=== PATIENT | female | born 1990 | race Caucasian/White ===

== ENCOUNTER 2020-06-03 15:12 | Emergency (ER) | payer MEDICAID, MEDICARE ==
[~2020-06-03] VITALS: Ht 160 cm; Wt 69.6 kg
[2020-06-03 15:17] VITALS: BP 127/84
--- NOTE | 2020-06-03 16:00 | NUR ---
Provider at bedside discussing pt.'s XR results and plan.
--- NOTE | 2020-06-03 17:17 | NUR ---
Patient given discharge instructions and prescription and they have confirmed that they understand the instructions. Patient stable and ambulatory with steady gait from ED.
== END 2020-06-03 17:18 | disposition home or self-care (01) ==
LOC: ED 16:09
DX: S52.125A Nondisplaced fracture of head of left radius, initial encounter for closed fracture (principal); W05.1XXA Fall from non-moving nonmotorized scooter, initial encounter; Y93.89 Activity, other specified; Y92.098 Other place in other non-institutional residence as the place of occurrence of the external cause; Y99.8 Other external cause status
CPT/HCPCS: 29105; 99283

== ENCOUNTER → 2020-06-08 | Outpatient (CLI) | payer MEDICAID | END | disposition home or self-care (01) | LOC: RAD 12:26 | PROVIDERS: ATTEND Physician Assistant Surgical | DX: S52.125A Nondisplaced fracture of head of left radius, initial encounter for closed fracture (principal); X58.XXXA Exposure to other specified factors, initial encounter; Y93.89 Activity, other specified; Y92.89 Other specified places as the place of occurrence of the external cause; Y99.8 Other external cause status ==

== ENCOUNTER 2020-11-27 10:14 | Emergency (ER) | payer MEDICAID ==
[~2020-11-27] VITALS: Ht 160 cm; Wt 71.9 kg
[2020-11-27 10:23] VITALS: BP 165/71
[2020-11-27] MEDS ORDERED: KETOROLAC 30 MG/1 ML IM ONE (11:00)
--- NOTE | 2020-11-27 11:01 | NUR ---
REPORT OF PT FROM ADRIANA NUÑEZ AND ASSUMING CARE OF PT AT THIS TIME.
[2020-11-27] MEDS ORDERED: KETOROLAC 30 MG/1 ML ONE (11:04)
--- NOTE | 2020-11-27 11:58 | NUR ---
PT D/C WITH D/C SUMMARY AND SCRIPTS. ALL QUESTIONS ANSWERED. PT AMBULATES TO REGISTRATION DESK WITH STEADY GAIT FOR D/C HOME AND DENIES ANY OTHER NEEDS PERTAINING TO THIS VISIT.
== END 2020-11-27 12:10 | disposition home or self-care (01) ==
LOC: ED 11:01
DX: S93.491A Sprain of other ligament of right ankle, initial encounter (principal); F17.210 Nicotine dependence, cigarettes, uncomplicated; W50.2XXA Accidental twist by another person, initial encounter; Y93.89 Activity, other specified; Y92.009 Unspecified place in unspecified non-institutional (private) residence as the place of occurrence of the external cause; Y99.8 Other external cause status
CPT/HCPCS: 73610; 96372; 99283; J1885